=== PATIENT | female | born 1950 | race Two or more races ===

== ENCOUNTER 2019-12-11 08:24 | Outpatient (CLI) | payer OTHER | END 2019-12-11 08:33 | disposition home or self-care (01) | LOC: TOM 08:24 | PROVIDERS: ATTEND Urology | DX: K57.90 Diverticulosis of intestine, part unspecified, without perforation or abscess without bleeding (principal); N20.1 Calculus of ureter; R31.21 Asymptomatic microscopic hematuria ==

== ENCOUNTER → 2019-12-13 15:16 | Outpatient (CLI) | payer OTHER | END | disposition home or self-care (01) | LOC: LAB 15:16 | PROVIDERS: ATTEND Urology | DX: N30.00 Acute cystitis without hematuria (principal) ==